=== PATIENT | female | born 1990 | race Caucasian/White ===

== ENCOUNTER 2022-03-30 12:30 | Emergency (ER) | payer MEDICAID ==
[~2022-03-30] VITALS: Ht 170.2 cm; Wt 61.2 kg
[2022-03-30 12:30] VITALS: BP_SYST 116
[~2022-03-30 12:30] MED LIST: ALBMDI INH; FLUT1DIS3 IH; PRED20TA PO
[2022-03-30] MEDS ORDERED: predniSONE 20 MG TABLET PO ONE (15:00)
[2022-03-30] MEDS ORDERED: IPRATROPIUM/ALBUTEROL SULFATE 3 ML AMPUL.NEB (DUONEB) INH ONE (15:00)
[2022-03-30] MEDS ORDERED: PRED20TA PO (15:21)
[2022-03-30] MEDS ORDERED: ZIT250 PO (15:21)
== END 2022-03-30 15:40 | disposition home or self-care (01) ==
LOC: SED 12:30
DX: J45.901 Unspecified asthma with (acute) exacerbation (principal); J20.9 Acute bronchitis, unspecified; R05.9 Cough, unspecified; R09.81 Nasal congestion; Z79.899 Other long term (current) drug therapy
CPT/HCPCS: 99283; 71045; 94640; J7512